=== PATIENT | female | born 1970 | race Caucasian/White ===

== ENCOUNTER → 2019-05-26 | Outpatient (CLI) | payer SELFPAY ==
[~2019-05-26] MED LIST: IBUP-1780 PO; PREN-48 PO; SULF1TAB35 PO
--- NOTE | 2019-05-26 14:56 | Diagnostic Imaging Report ---
INDICATION: Right shoulder fracture. TIME OF EXAM: 2:34 PM COMPARISON: Comparison is made with outside radiographs performed 05/18/2019. FINDINGS: Fracture of the proximal humerus and involving the greater tuberosity is again seen. Overall alignment appears stable. Fracture line remains clearly visible. Glenohumeral alignment is normal. Acromioclavicular alignment is normal. IMPRESSION: Comminuted proximal humerus fracture with involvement of the greater tuberosity, stable in appearance when compared with examination from one week earlier. Dictated by: Dictated on workstation # [id number]
== END ==
LOC: ORTHO 14:14
PROVIDERS: ATTEND Orthopaedic Surgery
DX: S42.251A Displaced fracture of greater tuberosity of right humerus, initial encounter for closed fracture (principal)
CPT/HCPCS: 73030; 99203